=== PATIENT | male | born 1990 | race Caucasian/White ===

== ENCOUNTER 2017-03-13 18:07 | Emergency (ER) | payer OTHER ==
[2017-03-13] MEDS ORDERED: Sodium Chloride 0.9% 2.5 ML Syringe FLUSH PRN (18:16)
[2017-03-13] MEDS ORDERED: Sodium Chloride 0.9% 10 ML Syringe FLUSH PRN (18:16)
[2017-03-13] MEDS ORDERED: Bacitracin Oint 1 GM U/D Packet TOP ONE ×2 (18:18→20:05)
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
[2017-03-13 18:40] LABS: CHLORIDE,CL 108 mmol/L (98-110); SODIUM,NA 144 mmol/L (136-146)
[2017-03-13] MEDS ORDERED: Lidocaine 1% 20 ML MDV INJECT ONE (19:19)
[2017-03-13] MEDS ORDERED: Bacitracin Oint 1 GM U/D Packet ONE (20:05)
[2017-03-13 20:32] VITALS: BP 130/72
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
== END 2017-03-13 20:25 | disposition home or self-care (01) ==
LOC: MW.ED 18:07
DX: S06.0X0A Concussion without loss of consciousness, initial encounter (principal); S01.91XA Laceration without foreign body of unspecified part of head, initial encounter; V29.9XXA Motorcycle rider (driver) (passenger) injured in unspecified traffic accident, initial encounter
CPT/HCPCS: 12004; 36415; 70450; 80053; 85025; 99284; G0390; 99283

== ENCOUNTER 2018-02-14 13:30 | Emergency (ER) | payer SELFPAY ==
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
--- NOTE | 2018-02-14 14:47 | CR ---
EXAMINATION: Right shoulder HISTORY: Pain COMPARISON: None TECHNIQUE: 3 views FINDINGS/IMPRESSION: There is no acute osseous abnormality, dislocation, or fracture. Bone mineraliza tion and joint spaces appear normal.
[2018-02-14 15:23] VITALS: BP 118/59
== END 2018-02-14 15:23 | disposition home or self-care (01) ==
LOC: MW.ED 13:30
DX: S43.401A Unspecified sprain of right shoulder joint, initial encounter (principal); V86.56XA Driver of dirt bike or motor/cross bike injured in nontraffic accident, initial encounter
CPT/HCPCS: 73030-26-RT; 73030-RT; 99284-25

== ENCOUNTER 2019-03-17 14:54 | Emergency (ER) | payer SELFPAY ==
--- NOTE | 2019-03-17 15:17 | EDM.PDOC ---
ED HPI GENERAL MEDICAL PROBLEM - General Chief Complaint: ENT Problem Stated Complaint: SWOLLEN LYMPH NODE UNDER JAW, SINUS INFECTION Time Seen by Provider: 03/17/19 14:59 Source of Information: Reports: Patient History Limitations: Reports: No Limitations - History of Present Illness INITIAL COMMENTS - FREE TEXT/NARRATIVE: History of present illness: []Patient has had 2 weeks of upper respiratory symptoms. Started out with sinus pain and pressure with drainage that was multicolored. Patient states that his symptoms have now lowered into his chest and he is coughing up thick mucus. He denies being short of breath or having fevers or chills. Denies sore throat or ear pain. Review of systems: As per history of present illness and below otherwise all systems reviewed and negative. Past medical history: As per history of present illness and as reviewed below otherwise noncontributory. Surgical history: As per history of present illness and as reviewed below otherwise noncontributory. Social history: No reported history of drug or alcohol abuse. Family history: As per history of present illness and as reviewed below otherwise noncontributory. Physical exam: General: Well developed, well nourished in NAD HEENT: Atraumatic, normocephalic, pupils reactive, negative for conjunctival pallor or scleral icterus, mucous membranes moist, throat clear, no erythema or stridor neck supple, nontender, trachea midline. No adenopathy the TMs clear positive congested no tenderness to palpation over sinuses Lungs: Clear to auscultation, breath sounds equal bilaterally, chest nontender. Positive coarse breath sounds throughout no respiratory distress or chest wall retractions Heart: S1S2, regular, negative for clicks, rubs, or JVD. Abdomen: NABS, Soft, nondistended, nontender. Negative for masses or hepatosplenomegaly. Negative for costovertebral tenderness. Pelvis: Stable nontender. Genitourinary: Deferred. Rectal: Deferred. Extremities: Atraumatic, negative for cords or calf pain. Neurovascular unremarkable. Neuro: Awake, alert, oriented. Cranial nerves II through XII unremarkable. Cerebellum unremarkable. Motor and sensory unremarkable throughout. Exam nonfocal. Skin:warm and dry Diagnostics: None Therapeutics: None ED Course: Stable, even 2 weeks of symptoms out improvement and will treat him with antibiotics and an inhaler Impression: Acute bronchitis Prescriptions: Amoxicillin, albuterol Plan: Take meds as directed, follow up with your primary care physician, return to ER if symptoms worsen or change. Definitive disposition and diagnosis as appropriate pending reevaluation and review of above. Throat Pain Score (Numeric/FACES): 5 - Related Data Allergies Allergy/AdvReac Type Severity Reaction Status Date / Time No Known Allergies Allergy Verified 03/17/19 15:16 Home Meds: Home Meds Albuterol [Ventolin HFA] 2 puff INH Q4HR PRN #1 inhaler 03/17/19 [Rx] Amoxicillin 875 mg PO BID 10 Days #20 tab 03/17/19 [Rx] Past Medical History - Past Health History Medical/Surgical History: Denies Medical/Surgical History HEENT History: Reports: None Cardiovascular History: Reports: None Respiratory History: Reports: None Gastrointestinal History: Reports: None Genitourinary History: Reports: None Musculoskeletal History: Reports: None Neurological History: Reports: None Psychiatric History: Reports: None Endocrine/Metabolic History: Reports: None Hematologic History: Reports: None Immunologic History: Reports: None Oncologic (Cancer) History: Reports: None Dermatologic History: Reports: None - Infectious Disease History Infectious Disease History: Reports: None Social & Family History - Family History Family Medical History: Noncontributory - Caffeine Use Caffeine Use: Reports: None ED ROS ENT - Review of Systems Review Of Systems: See Below ED EXAM, ENT - Physical Exam Exam: See Below Course - Vital Signs Last Recorded V/S: Last Vital Signs Temp 98.9 F 03/17/19 15:17 Pulse 96 03/17/19 15:17 Resp 16 03/17/19 15:17 BP 126/71 03/17/19 15:17 Pulse Ox 96 03/17/19 15:17 Departure - Departure Time of Disposition: 15:31 Disposition: Home, Self-Care 01 Condition: Good Clinical Impression: Acute bronchitis Qualifiers: Bronchitis organism: unspecified organism Qualified Code(s): J20.9 - Acute bronchitis, unspecified - Discharge Information *PRESCRIPTION DRUG MONITORING PROGRAM REVIEWED*: No *COPY OF PRESCRIPTION DRUG MONITORING REPORT IN PATIENT URIEL: No Prescriptions: Albuterol [Ventolin HFA] 2 puff INH Q4HR PRN #1 inhaler PRN Reason: Shortness Of Breath Amoxicillin 875 mg PO BID 10 Days #20 tab Referrals: PCP,None [Primary Care Provider] - Forms: ED Department Discharge Additional Instructions: The following information is given to patients seen in the emergency department who are being discharged to home. This information is to outline your options for follow-up care. We provide all patients seen in our emergency department with a follow-up referral. The need for follow-up, as well as the timing and circumstances, are variable depending upon the specifics of your emergency department visit. If you don't have a primary care physician on staff, we will provide you with a referral. We always advise you to contact your personal physician following an emergency department visit to inform them of the circumstance of the visit and for follow-up with them and/or the need for any referrals to a consulting specialist. The emergency department will also refer you to a specialist when appropriate. This referral assures that you have the opportunity for follow-up care with a specialist. All of these measure are taken in an effort to provide you with optimal care, which includes your follow-up. Under all circumstances we always encourage you to contact your private physician who remains a resource for coordinating your care. When calling for follow-up care, please make the office aware that this follow-up is from your recent emergency room visit. If for any reason you are refused follow-up, please contact the [facility] Emergency Department at and asked to speak to the emergency department charge nurse. Take meds as directed, follow up with your primary care physician, return to ER if symptoms worsen or change. [facility] [address] [place] [id number]
[2019-03-17 15:18] VITALS: BP 126/71; PULSE 96
== END 2019-03-17 15:37 | disposition home or self-care (01) ==
LOC: MW.ED 14:54
DX: J20.9 Acute bronchitis, unspecified (principal)
CPT/HCPCS: 99282

== ENCOUNTER 2021-01-09 02:34 | Emergency (ER) | payer MEDICAID ==
[2021-01-09] MEDS ORDERED: Amoxicillin/Clavulanate K 875-125 MG Tab PO ONE (03:12)
[2021-01-09] MEDS ORDERED: Bupivacaine 0.5% 10 ML SDV INJECT ONE (03:12)
[2021-01-09] MEDS ORDERED: Lidocaine 2% Viscous Solution 15 ML Cup PO ONE (03:22)
[2021-01-09 03:29] VITALS: BP 107/71; PULSE 83
--- NOTE | 2021-01-09 03:29 | EDM.PDOC ---
ED HPI GENERAL MEDICAL PROBLEM - General Chief Complaint: ENT Problem Stated Complaint: ABSCESSED TOOTH Time Seen by Provider: 01/09/21 03:12 - History of Present Illness INITIAL COMMENTS - FREE TEXT/NARRATIVE: CHIEF COMPLAINT(S): Left tooth pain HISTORY OF PRESENT ILLNESS: This is a 30-year-old man without any significant past medical history who comes to the emergency department with a chief complaint of a left tooth pain. The patient states that he comes to the emergency department because he has a dental abscess. He states that he is experiencing pain in the backside of his left mouth. He describes it as throbbing and swelling. He denies any radiation of this pain. He denies any blurry vision, trouble swallowing, speaking but states that anytime you touch the tooth that seems to hurt. He has not yet seen a dentist. He has not yet tried any pain medication. He denies any other symptoms. REVIEW OF SYSTEMS: Constitutional: Denies fever, chills. Eyes: Denies eye pain Ears, Nose, Mouth, & Throat: Positive for left tooth pain. Denies earache Cardiovascular: Denies chest pain Respiratory: Denies shortness of breath Gastrointestinal: Denies Nausea, vomiting, diarrhea, hematochezia. Genitourinary: Denies hematuria Skin:Denies a rash MSK: Denies joint pain Neurological: Denies blurred vision Psychiatric: Denies depression PAST MEDICAL HISTORY: As per history of present illness and as reviewed below otherwise noncontributory. SURGICAL HISTORY: As per history of present illness and as reviewed below otherwise noncontributory. SOCIAL HISTORY: As per history of present illness and as reviewed below otherwise noncontributory. FAMILY HISTORY: As per history of present illness and as reviewed below otherwise noncontributory. EXAMINATION OF ORGAN SYSTEMS/BODY AREAS: Constitutional: Blood pressure is 140/77, heart rate 66, respiratory rate 17 with an oxygen saturation 99% on room air. Temperature 36 point General: Overall well-appearing man who is in no acute distress Psychiatric: Appropriate mood and affect. Eyes: No scleral icterus or conjunctival erythema ENMT: Moist mucous membranes. No pharyngeal erythema there is not appear to be any gingival erythema, swelling, purulent drainage. There is no buccal swelling or erythema. There is tenderness to palpation along the posterior upper left molar. There is some dental caries in this area. There is no trismus, drooling, stridor. Uvula was midline Cardiovascular: Regular, rate, and rhythm. No gallops, murmurs, or rubs. Bilateral upper extremity pulses symmetric and intact. No peripheral edema. No JVD. Respiratory: Lungs clear to auscultation bilaterally. No wheezes, rales, or rhonchi. Musculoskeletal: Normal range of motion. Skin: No lesions or abrasions. Neurological: Alert, GCS 15 MEDICAL DECISION MAKING AND COURSE IN THE ED WITH INTERPRETATION/REVIEW OF DIAGNOSTIC STUDIES: This is a 30-year-old man without any significant past medical history who comes to the emergency department with a left posterior dental pain. At this time we will provide the patient with Augmentin for possible dental abscess. I did offer the patient a dental block and encourage the patient to follow-up with dentist. He was amenable to this plan. Using a 28-gauge needle and approximately 2 cc of 0.5% bupivacaine I did perform a dental block of the posterior upper left molar. No complications noted. On reevaluation the patient reported significant improvement in his pain. Encourage the patient to use Tylenol and Motrin for pain relief and to follow-up with his dentist as soon as possible. He was amenable discharge and had no further questions DISPOSITION: The patient will follow up with dentistry as soon as possible CONDITION: Fair PROCEDURES: None FINAL IMPRESSION(S)/DIAGNOSES: 1. Acute dental pain, possible dental abscess Javon Gauthier M.D. left upper mouth Pain Score (Numeric/FACES): 8 - Related Data Allergies Allergy/AdvReac Type Severity Reaction Status Date / Time No Known Allergies Allergy Verified 01/09/21 02:54 Home Meds: Home Meds Amoxicillin/Potassium Clav [Amox Tr-K Clv 875-125 mg Tab] 1 each PO BID #13 tablet 01/09/21 [Rx] Past Medical History - Past Health History Medical/Surgical History: Denies Medical/Surgical History HEENT History: Reports: None Cardiovascular History: Reports: None Respiratory History: Reports: None Gastrointestinal History: Reports: None Genitourinary History: Reports: None Musculoskeletal History: Reports: None Neurological History: Reports: None Psychiatric History: Reports: None Endocrine/Metabolic History: Reports: None Hematologic History: Reports: None Immunologic History: Reports: None Oncologic (Cancer) History: Reports: None Dermatologic History: Reports: None - Infectious Disease History Infectious Disease History: Reports: None Social & Family History - Family History Family Medical History: No Pertinent Family History - Tobacco Use Tobacco Use Status *Q: Current Every Day Tobacco User Years of Tobacco use: 12 Packs/Tins Daily: 1 - Caffeine Use Caffeine Use: Reports: Coffee - Recreational Drug Use Recreational Drug Use: No ED ROS GENERAL - Review of Systems Review Of Systems: See Below ED EXAM, GENERAL - Physical Exam Exam: See Below Course - Vital Signs Last Recorded V/S: Last Vital Signs Temp 36.7 C 01/09/21 02:51 Pulse 83 01/09/21 03:28 Resp 17 01/09/21 03:28 BP 107/71 01/09/21 03:28 Pulse Ox 98 01/09/21 03:28 - Orders/Labs/Meds Meds: Medications Discontinued Medications Generic Name Dose Route Start Last Admin Trade Name Freq PRN Reason Stop Dose Admin Amoxicillin/Clavulanate Potassium 1 tab 01/09/21 03:12 01/09/21 03:16 Amoxicillin/Clavulanate K 875-125 Mg Tab PO 01/09/21 03:13 1 tab ONETIME ONE Administration Bupivacaine HCl 10 ml 01/09/21 03:12 01/09/21 03:16 Bupivacaine 0.5% 10 Ml Sdv INJECT 01/09/21 03:13 10 ml ONETIME ONE Administration Lidocaine HCl 15 ml 01/09/21 03:22 01/09/21 03:27 Lidocaine 2% Viscous Solution 15 Ml Cup PO 01/09/21 03:23 15 ml ONETIME ONE Administration Departure - Departure Time of Disposition: 03:28 Disposition: Home, Self-Care 01 Condition: Fair Clinical Impression: Dental abscess - Discharge Information *PRESCRIPTION DRUG MONITORING PROGRAM REVIEWED*: No *COPY OF PRESCRIPTION DRUG MONITORING REPORT IN PATIENT URIEL: No Prescriptions: Amoxicillin/Potassium Clav [Amox Tr-K Clv 875-125 mg Tab] 1 each PO BID #13 tablet Instructions: Dental Abscess Referrals: PCP,None [Primary Care Provider] - Forms: ED Department Discharge Additional Instructions: You were evaluated today on an emergent basis. At this time I do recommend that you follow-up with dentistry for further treatment of the tooth pain you have. We did provide you with a dental block which should last approximately 6 hours. We also provided you with some numbing medication soaked cotton balls. Please use these as needed for symptomatic relief. In addition to this you should use Tylenol and Motrin for pain relief. I did send your prescription to the pharmacy. Please complete the course. If you have any worsening symptoms please return to the emergency department. Please use: Tylenol 500-1000mg every 6 hours (DO NOT TAKE MORE THAN 4000mg in 1 day) Ibuprofen 400mg every 6 hours (Take with food as it can cause ulcers, GI upset) Example schedule: 8:00 AM (Tylenol 500-1000mg) 11:00 AM (Ibuprofen 400mg) 2:00 PM (Tylenol 500-1000mg) 5:00 PM (Ibuprofen 400mg) [facility] [address] [place] [address] [id number] [address] [address] The patient is informed of any results of their evaluation and diagnostic workup and all questions are answered. They are given discharge instructions and return precautions. The patient is stable for discharge. The patient states they understand and agree with the plan and that they will return if their symptoms get worse or if they have any new concerns. The following information is given to patients seen in the emergency department who are being discharged to home. This information is to outline your options for follow-up care. We provide all patients seen in our emergency department with a follow-up referral. The need for follow-up, as well as the timing and circumstances, are variable depending upon the specifics of your emergency department visit. If you don't have a primary care physician on staff, we will provide you with a referral. We always advise you to contact your personal physician following an emergency department visit to inform them of the circumstance of the visit and for follow-up with them and/or the need for any referrals to a consulting speci alist. The emergency department will also refer you to a specialist when appropriate. This referral assures that you have the opportunity for follow-up care with a specialist. All of these measure are taken in an effort to provide you with optimal care, which includes your follow-up. Under all circumstances we always encourage you to contact your private physician who remains a resource for coordinating your care. When calling for follow-up care, please make the office aware that this follow-up is from your recent emergency room visit. If for any reason you are refused follow-up, please contact the [facility] Emergency Department at and asked to speak to the emergency department charge nurse. Sepsis Event Note (ED) - Evaluation Sepsis Screening Result: No Definite Risk
== END 2021-01-09 03:48 | disposition home or self-care (01) ==
LOC: MW.ED 02:34
DX: K04.7 Periapical abscess without sinus (principal); Z72.0 Tobacco use
CPT/HCPCS: 64400; 99282; A9270; J3490

== ENCOUNTER 2023-05-07 07:17 | Emergency (ER) | payer MEDICAID ==
[2023-05-07 08:09] VITALS: BP 123/78; PULSE 106
== END 2023-05-07 08:09 | disposition home or self-care (01) ==
LOC: MW.ED 07:17
DX: K08.89 Other specified disorders of teeth and supporting structures (principal)
CPT/HCPCS: 99282; 99283